=== PATIENT | female | born 2000 | race American Indian/Alaskan Native ===

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

== ENCOUNTER 2021-02-13 15:30 | Emergency (ER) | payer MEDICAID ==
[2021-02-13 16:26] LABS: CORONAVIRUS COVID-19 NAA NEGATIVE (NEGATIVE)
--- NOTE | 2021-02-13 17:02 | EDM.PDOC ---
<Jocelyne Cooper - Last Filed: 02/13/21 18:06> ED HPI GENERAL MEDICAL PROBLEM - General Chief Complaint: General Stated Complaint: BODY HURTING Time Seen by Provider: 02/13/21 16:46 Source of Information: Reports: Patient History Limitations: Reports: No Limitations - History of Present Illness INITIAL COMMENTS - FREE TEXT/NARRATIVE: Patient is a 20 y.o. female who presents to the ED with c/o chills, headaches, and body aches. The patient states she woke up around 4:00 with a mild headache and generalized body aches. The patient took ibuprofen with little relief. She later went to work and developed chills and began feeling weak. She reports feeling feverish but did not take her temperature. She returned home and took a nap. Her symptoms had gradually worsened when she woke up a 13:00 and she took another dose of ibuprofen with no relief. The patient denies vision changes, dizziness, nausea, vomiting, sore throat, cough, shortness of breath or chest pain. She has no abdominal pain, dysuria, hematuria, no changes in bowel habits. Patient denies alcohol, tobacco, or illicit drug use. She denies any sick contacts. Onset: Today Duration: Getting Worse Location: Reports: Generalized Quality: Reports: Ache Improves with: Reports: None Worsens with: Reports: None Context: Reports: Other Associated Symptoms: Reports: Fever/Chills, Headaches, Weakness. 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 ED EXAM, GENERAL - Physical Exam Exam: See Below Exam Limited By: No Limitations General Appearance: Alert, WD/WN, No Apparent Distress Eye Exam: Bilateral Eye: EOMI, Normal Inspection, PERRL Ears: Normal External Exam, Normal Canal, Hearing Grossly Normal, Normal TMs Nose: Normal Inspection, Normal Mucosa, No Blood Throat/Mouth: Normal Inspection, Normal Lips, Normal Teeth, Normal Gums, Normal Oropharynx, Normal Voice, No Airway Compromise Head: Atraumatic, Normocephalic Neck: Normal Inspection, Supple, Non-Tender, Full Range of Motion Respiratory/Chest: No Respiratory Distress, Lungs Clear, Normal Breath Sounds, No Accessory Muscle Use, Chest Non-Tender Cardiovascular: Normal Peripheral Pulses, No Edema, No Gallop, No Murmur, No Rub, Tachycardia Peripheral Pulses: 3+: Radial (L), Radial (R), Posterior Tibial (L), Posterior Tibial (R) GI/Abdominal: Normal Bowel Sounds, Soft, Non-Tender, No Organomegaly, No Distention, No Abnormal Bruit, No Mass (Female) Exam: Deferred Rectal (Female) Exam: Deferred Back Exam: Normal Inspection, Full Range of Motion. No: CVA Tenderness (L), CVA Tenderness (R), Muscle Spasm, Vertebral Tenderness Extremities: Normal Inspection, Normal Range of Motion, Non-Tender, No Pedal Edema, Normal Capillary Refill. No: Joint Swelling Neurological: Alert, Oriented, CN II-XII Intact, Normal Cognition, Normal Gait, Normal Reflexes, No Motor/Sensory Deficits Psychiatric: Anxious, Tearful Skin Exam: Warm, Dry, Intact, Normal Color, No Rash Lymphatic: No Adenopathy Departure - Departure Time of Disposition: 18:04 Disposition: Home, Self-Care 01 Condition: Fair Clinical Impression: Viral infection - Discharge Information *PRESCRIPTION DRUG MONITORING PROGRAM REVIEWED*: Not Applicable *COPY OF PRESCRIPTION DRUG MONITORING REPORT IN PATIENT TINY: Not Applicable Instructions: Viral Illness, Adult Forms: ED Department Discharge Care Plan Goals: Patient was advised of the physical exam, lab, and x-results. -Recommended Ibuprofen or Tylenol to reduce symptoms of body aches or fever. -Drink plenty of fluids, especially water. Eat a plain diet as tolerated. Get plenty of rest. -If the patient's symptoms persist or worsen she needs to follow up in the ED for further evaluation. Sepsis Event Note (ED) - Evaluation Sepsis Screening Result: No Definite Risk <Glenroy Roblero - Last Filed: 02/13/21 18:11> Course - Vital Signs Last Recorded V/S: Last Vital Signs Temp 37.4 C 02/13/21 15:47 Pulse 117 H 02/13/21 15:47 Resp 18 02/13/21 15:47 BP 122/71 02/13/21 15:47 Pulse Ox 99 02/13/21 15:47 - Orders/Labs/Meds Orders: Active Orders 24 hr Category Date Time Status CULTURE STREP A CONFIRMATION [] Stat Lab 02/13/21 15:40 Results CULTURE URINE [] Stat Lab 02/13/21 16:52 Received STREP SCRN A RAPID W CULT CONF [] Stat Lab 02/13/21 15:39 Ordered Labs: Laboratory Tests 02/13/21 02/13/21 02/13/21 Range/Units 15:40 16:45 16:45 WBC 13.9 H (5.0-10.0) 10^3/uL RBC 4.85 (4.2-5.4) 10^6/uL Hgb 14.3 (12.0-16.0) g/dL Hct 40.6 (37.0-47.0) % MCV 83.7 D (80-100) fL MCH 29.5 (27.0-34.0) pg MCHC 35.2 H (33.0-35.0) g/dL Plt Count 325 (150-450) 10^3/uL Neut % (Auto) 83.7 H (42.2-75.2) % Lymph % (Auto) 8.0 L (20.5-50.1) % [place] % (Auto) 7.8 (2-8) % Eos % (Auto) 0.2 L (1.0-3.0) % Baso % (Auto) 0.3 (0.0-1.0) % Sodium 137 (136-145) mmol/L Potassium 3.4 L (3.5-5.1) mmol/L Chloride 102 (98-107) mmol/L Carbon Dioxide 27 (21-32) mmol/L Anion Gap 11.4 (7-13) mEq/L BUN 11 (7-18) mg/dL Creatinine 0.85 (0.55-1.02) mg/dL Est Cr Clr Drug Dosing 91.93 mL/min Estimated GFR (MDRD) > 60 BUN/Creatinine Ratio 12.9 (No establ ref range) Glucose 88 (74-99) mg/dL Calcium 8.1 L (8.5-10.1) mg/dL Total Bilirubin 0.6 (0.2-1.0) mg/dL AST 15 (15-37) U/L ALT 33 (14-59) U/L Alkaline Phosphatase 148 H (46-116) U/L Total Protein 7.9 (6.4-8.2) g/dL Albumin 3.8 (3.4-5.0) g/dL Globulin 4.1 Albumin/Globulin Ratio 0.9 Urine Color (YELLOW) Urine Appearance (CLEAR) Urine pH (5.0-9.0) Ur Specific [place] (1.005-1.030) Urine Protein (NEGATIVE) Urine Glucose (UA) (NEGATIVE) Urine Ketones (NEGATIVE) Urine Occult Blood (NEGATIVE) Urine Nitrite (NEGATIVE) Urine Bilirubin (NEGATIVE) Urine Urobilinogen (0.2-1.0) mg/dL Ur Leukocyte Esterase (NEGATIVE) Urine RBC /HPF Urine WBC (0-5/HPF) /HPF Ur Epithelial Cells (NOT SEEN) /HPF Urine Bacteria (0-FEW/HPF) /HPF Urine HCG, Qual Urine Opiates Screen (NEGATIVE) Ur Oxycodone Screen (NEGATIVE) Urine Methadone Screen (NEGATIVE) Ur Barbiturates Screen (NEGATIVE) U Tricyclic Antidepress (NEGATIVE) Ur Phencyclidine Scrn (NEGATIVE) Ur Amphetamine Screen (NEGATIVE) U Methamphetamines Scrn (NEGATIVE) Urine MDMA Screen (NEGATIVE) U Benzodiazepines Scrn (NEGATIVE) Urine Cocaine Screen (NEGATIVE) U Marijuana (THC) Screen (NEGATIVE) Influenza Type A RNA Negative (NEGATIVE) Influenza Type B RNA Negative (NEGATIVE) SARS-CoV-2 RNA (HEMA) Negative (NEGATIVE) 02/13/21 02/13/21 02/13/21 Range/Units 16:52 16:52 16:52 WBC (5.0-10.0) 10^3/uL RBC (4.2-5.4) 10^6/uL Hgb (12.0-16.0) g/dL Hct (37.0-47.0) % MCV (80-100) fL MCH (27.0-34.0) pg MCHC (33.0-35.0) g/dL Plt Count (150-450) 10^3/uL Neut % (Auto) (42.2-75.2) % Lymph % (Auto) (20.5-50.1) % [place] % (Auto) (2-8) % Eos % (Auto) (1.0-3.0) % Baso % (Auto) (0.0-1.0) % Sodium (136-145) mmol/L Potassium (3.5-5.1) mmol/L Chloride (98-107) mmol/L Carbon Dioxide (21-32) mmol/L Anion Gap (7-13) mEq/L BUN (7-18) mg/dL Creatinine (0.55-1.02) mg/dL Est Cr Clr Drug Dosing mL/min Estimated GFR (MDRD) BUN/Creatinine Ratio (No establ ref range) Glucose (74-99) mg/dL Calcium (8.5-10.1) mg/dL Total Bilirubin (0.2-1.0) mg/dL AST (15-37) U/L ALT (14-59) U/L Alkaline Phosphatase (46-116) U/L Total Protein (6.4-8.2) g/dL Albumin (3.4-5.0) g/dL Globulin Albumin/Globulin Ratio Urine Color Yellow (YELLOW) Urine Appearance Clear (CLEAR) Urine pH 6.5 (5.0-9.0) Ur Specific [place] 1.025 (1.005-1.030) Urine Protein Negative (NEGATIVE) Urine Glucose (UA) Negative (NEGATIVE) Urine Ketones Negative (NEGATIVE) Urine Occult Blood Negative (NEGATIVE) Urine Nitrite Negative (NEGATIVE) Urine Bilirubin Negative (NEGATIVE) Urine Urobilinogen 0.2 (0.2-1.0) mg/dL Ur Leukocyte Esterase Trace H (NEGATIVE) Urine RBC Not seen /HPF Urine WBC 0-5 (0-5/HPF) /HPF Ur Epithelial Cells Moderate H (NOT SEEN) /HPF Urine Bacteria Few (0-FEW/HPF) /HPF Urine HCG, Qual Negative Urine Opiates Screen Negative (NEGATIVE) Ur Oxycodone Screen Negative (NEGATIVE) Urine Methadone Screen Negative (NEGATIVE) Ur Barbiturates Screen Negative (NEGATIVE) U Tricyclic Antidepress Negative (NEGATIVE) Ur Phencyclidine Scrn Negative (NEGATIVE) Ur Amphetamine Screen Negative (NEGATIVE) U Methamphetamines Scrn Negative (NEGATIVE) Urine MDMA Screen Negative (NEGATIVE) U Benzodiazepines Scrn Negative (NEGATIVE) Urine Cocaine Screen Negative (NEGATIVE) U Marijuana (THC) Screen Negative (NEGATIVE) Influenza Type A RNA (NEGATIVE) Influenza Type B RNA (NEGATIVE) SARS-CoV-2 RNA (HEMA) (NEGATIVE) - Re-Assessments/Exams Free Text/Narrative Re-Assessment/Exam: 02/13/21 18:11 I have examined the patient. I have discussed findings and treatment plan with the PA student. I agree with the assessment and plan in the following students note. Sepsis Event Note (ED) - Focused Exam Vital Signs: Vital Signs Temp Pulse Resp BP Pulse Ox 02/13/21 15:47 37.4 C 117 H 18 122/71 99 - My Orders Last 24 Hours: My Active Orders 02/13/21 15:39 STREP SCRN A RAPID W CULT CONF [RM] Stat 02/13/21 15:40 CULTURE STREP A CONFIRMATION [RM] Stat 02/13/21 16:52 CULTURE URINE [RM] Stat - Assessment/Plan Last 24 Hours: My Active Orders 02/13/21 15:39 STREP SCRN A RAPID W CULT CONF [RM] Stat 02/13/21 15:40 CULTURE STREP A CONFIRMATION [RM] Stat 02/13/21 16:52 CULTURE URINE [RM] Stat
[2021-02-13 17:10] LABS: ANION GAP 11.4 mEq/L (7-13); CHLORIDE,CL 102 mmol/L (98-107); SODIUM,NA 137 mmol/L (136-145)
--- NOTE | 2021-02-13 18:01 | CR ---
PROCEDURE INFORMATION: Exam: XR Chest Exam date and time: 02/13/2021 5:25 PM Age: 20 years old Clinical indication: Other: Elevated wbc; Additional info: Body aches; Elevated wbc TECHNIQUE: Imaging protocol: XR of the chest Views: 2 views. COMPARISON: No relevant prior studies available. FINDINGS: Lungs: Unremarkable. No consolidation. Pleural spaces: Unremarkable. No pleural effusion. No pneumothorax. Heart/Mediastinum: Unremarkable. No cardiomegaly. Bones/joints: Unremarkable. IMPRESSION: No acute findings.
== END 2021-02-13 18:13 | disposition home or self-care (01) ==
LOC: DL.ED 15:30
DX: B34.9 Viral infection, unspecified (principal); Z20.822 Contact with and (suspected) exposure to COVID-19
CPT/HCPCS: 0240U; 36415; 71046; 80053; 80305; 81001; 81025; 85025; 87081; 87086; 87430; 99283

== ENCOUNTER 2021-10-13 09:51 | Emergency (ER) | payer MEDICAID ==
[2021-10-13] MEDS ORDERED: Lidocaine 1% 30 ML SDV INJECT ONE (10:42)
[2021-10-13] MEDS ORDERED: Bacitracin Oint 1 GM U/D Packet TOP ONE (11:03)
[2021-10-13] MEDS ORDERED: Bacitracin Oint 1 GM U/D Packet ONE (11:04)
--- NOTE | 2021-10-13 11:06 | EDM.PDOC ---
ED HPI GENERAL MEDICAL PROBLEM - General Chief Complaint: Skin Complaint Stated Complaint: BUMP ON STOMACH Time Seen by Provider: 10/13/21 10:20 Source of Information: Reports: Patient History Limitations: Reports: Other - History of Present Illness INITIAL COMMENTS - FREE TEXT/NARRATIVE: This 20 yo female patient reports to the ED with redness and pain to her right lower abdomen. The patient reports she has noticed increased symptoms over the past 48 hours. The patient reports she has not been seen for these symptoms. Onset: Gradual Duration: Day(s):, Constant Location: Reports: Abdomen Quality: Reports: Ache, Burning Severity: Moderate Improves with: Reports: None Worsens with: Reports: None Context: Reports: Other Associated Symptoms: Reports: No Other Symptoms Right Lower Abdomen Pain Score (Numeric/FACES): 5 - Related Data Allergies Allergy/AdvReac Type Severity Reaction Status Date / Time No Known Allergies Allergy Verified 10/13/21 10:06 Home Meds: Home Meds . 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 ED EXAM, SKIN/RASH Exam: See Below Exam Limited By: No Limitations General Appearance: Alert, WD/WN, Mild Distress Eye Exam: Bilateral Eye: EOMI, Normal Inspection, PERRL Ears: Normal External Exam, Normal Canal, Hearing Grossly Normal, Normal TMs Nose: Normal Inspection, Normal Mucosa, No Blood Throat/Mouth: Normal Inspection, Normal Lips, Normal Teeth, Normal Gums, Normal Oropharynx, Normal Voice, No Airway Compromise Head: Atraumatic, Normocephalic Neck: Normal Inspection, Supple, Non-Tender, Full Range of Motion Respiratory/Chest: No Respiratory Distress, Lungs Clear, Normal Breath Sounds, No Accessory Muscle Use, Chest Non-Tender Cardiovascular: Normal Peripheral Pulses, Regular Rate, Rhythm, No Edema, No Gallop, No JVD, No Murmur, No Rub GI/Abdominal: Normal Bowel Sounds, Soft, Non-Tender, No Organomegaly, No Distention, No Abnormal Bruit, No Mass (Female) Exam: Deferred Rectal (Female) Exam: Deferred Back Exam: Normal Inspection, Full Range of Motion, NT Extremities: Normal Inspection, Normal Range of Motion, Non-Tender, No Pedal Edema, Normal Capillary Refill Neurological: Alert, Oriented, CN II-XII Intact, Normal Cognition, Normal Gait, Normal Reflexes, No Motor/Sensory Deficits Psychiatric: Normal Affect, Normal Mood Skin: Warm, Dry, Erythema Location, Skin: Abdomen Characteristics: Erythematous Associated features: Warmth, Tenderness, Swelling, Induration ED SKIN PROCEDURES - I&D Site: Right lower abdomen Skin Prep: Providone-Iodine (Betadine), Isopropyl Alcohol (Alcohol) Local Anesthesia: Lidocaine: 1% Plain Local Anesthetic Volume: 4cc Area Incised With: 15 Blade Drainage: Purulent, Bloody, Moderate Amount Probed to Break Up Loculations: Yes Packed With: None Sterile Dressing: Adhesive Dressing Complications: No Course - Vital Signs Last Recorded V/S: Last Vital Signs Temp 98.1 F 10/13/21 10:01 Pulse 96 10/13/21 10:01 Resp 18 10/13/21 10:01 BP 109/65 10/13/21 10:01 Pulse Ox 98 10/13/21 10:01 - Orders/Labs/Meds Orders: Active Orders 24 hr Category Date Time Status CULTURE WOUND [RM] Stat Lab 10/13/21 10:58 Ordered Meds: Medications Discontinued Medications Generic Name Dose Route Start Last Admin Trade Name Pascale PRN Reason Stop Dose Admin Bacitracin 1 dose 10/13/21 11:03 10/13/21 11:08 Bacitracin Oint 1 Gm U/D Packet TOP 10/13/21 11:04 1 dose ONETIME ONE Administration Bacitracin Confirm 10/13/21 11:04 Bacitracin Oint 1 Gm U/D Packet Administered 10/13/21 11:05 Dose 1 dose .ROUTE .STK-MED ONE Lidocaine HCl 30 ml 10/13/21 10:42 10/13/21 10:46 Lidocaine 1% 30 Ml Sdv INJECT 10/13/21 10:43 30 ml ONETIME ONE Administration Departure - Departure Time of Disposition: 11:05 Disposition: Home, Self-Care 01 Condition: Fair Clinical Impression: Abscess, abdomen - Discharge Information *PRESCRIPTION DRUG MONITORING PROGRAM REVIEWED*: Not Applicable Instructions: Skin Abscess, [id number] Forms: ED Department Discharge Care Plan Goals: The patient was advised of the examination results during the visit. The patient's abscess was incised and drained during the visit. The patient was discharged with a script for Keflex (500 mg) #20 to take 1 by mouth 2 times per day for 10 days. If the patient has any additional symptoms or concerns, the patient should either return to the emergency department or visit her primary care facility. Sepsis Event Note (ED) - Evaluation Sepsis Screening Result: No Definite Risk - Focused Exam Vital Signs: Vital Signs Temp Pulse Resp BP Pulse Ox 10/13/21 10:01 98.1 F 96 18 109/65 98 - My Orders Last 24 Hours: My Active Orders 10/13/21 10:58 CULTURE WOUND [RM] Stat - Assessment/Plan Last 24 Hours: My Active Orders 10/13/21 10:58 CULTURE WOUND [RM] Stat
== END 2021-10-13 11:22 | disposition home or self-care (01) ==
LOC: DL.ED 09:51
DX: L02.211 Cutaneous abscess of abdominal wall (principal)
CPT/HCPCS: 10060; 87070; 87077; 87186; 99284-25

== ENCOUNTER 2021-12-04 20:55 | Inpatient (IN) | payer MEDICAID ==
[2021-12-04] MEDS ORDERED: Methylergonovine 0.2 MG/1 ML Amp IM PRN (21:33)
[2021-12-04] MEDS ORDERED: Carboprost Tromethamine 250 MCG/1 ML Amp IM PRN (21:33)
[2021-12-04] MEDS ORDERED: Lactated Ringers 1,000 ML IV ONE (21:33)
[2021-12-04] MEDS ORDERED: Misoprostol 400 MCG (4 X 100 MCG TAB) RECTAL PRN (21:33)
[2021-12-04] MEDS ORDERED: Acetaminophen 325 MG Tab PO PRN (21:33)
[2021-12-04] MEDS ORDERED: Ondansetron 4 MG/2 ML SDV IVPUSH PRN (21:33)
[2021-12-04] MEDS ORDERED: fentaNYL 100 MCG/2 ML SDV IVPUSH ONE (21:33)
[2021-12-04] MEDS ORDERED: Lidocaine 1% 30 ML SDV INJECT PRN (21:33)
[2021-12-04] MEDS ORDERED: Tranexamic Acid 1,000 MG in Sodium Chloride 0.9% 100 ML IV PRN (21:33)
[2021-12-04] MEDS ORDERED: Oxytocin/Normal Saline 30 UNIT/500 ML BAG IV SCH (21:45)
[2021-12-04] MEDS ORDERED: Lactated Ringers 1,000 ML IV SCH (21:45)
[2021-12-04] MEDS ORDERED: Simethicone 80 MG Tab.Chew PO PRN (23:34)
[2021-12-04] MEDS ORDERED: Oxytocin 10 Units/1 ML SDV IM PRN (23:34)
[2021-12-04] MEDS ORDERED: Zolpidem 5 MG Tab PO PRN (23:34)
[2021-12-04] MEDS ORDERED: Benzocaine/Menthol 20%-0.5% Spray 78 GM Cannister TOP PRN (23:34)
[2021-12-05] MEDS: Ibuprofen 800 MG Tab PO PRN ×3 (01:55→18:15)
[2021-12-05] MEDS: Prenatal Multivitamin with Calcium/Folic Acid/Iron Tab PO SCH (08:55)
[2021-12-05] MEDS: Ferrous Sulfate 325 MG Tab PO SCH ×2 (08:55→18:14)
[2021-12-05] MEDS: Docusate Sodium 100 MG Cap PO PRN ×2 (08:55→21:14)
[2021-12-06] MEDS: Ferrous Sulfate 325 MG Tab PO SCH (09:48)
[2021-12-06] MEDS: Docusate Sodium 100 MG Cap PO PRN (09:48)
[2021-12-06] MEDS: Prenatal Multivitamin with Calcium/Folic Acid/Iron Tab PO SCH (09:48)
[2021-12-06] MEDS: Ibuprofen 800 MG Tab PO PRN (09:48)
== END 2021-12-06 10:35 | disposition home or self-care (01) | DRG 807 ==
LOC: DL.OBCHECK 20:55 → DL.OB 21:33 → OBSVTOIN 23:11
PROVIDERS: ADMIT Family Medicine; ATTEND Family Medicine
PROC: 10E0XZZ Delivery of Products of Conception, External Approach (ICD-10-PCS; principal; 2021-12-05)
PROC: 0KQM0ZZ Repair Perineum Muscle, Open Approach (ICD-10-PCS; 2021-12-05)
PROC: 10907ZC Drainage of Amniotic Fluid, Therapeutic from Products of Conception, Via Natural or Artificial Opening (ICD-10-PCS; 2021-12-05)
DX: O99.02 Anemia complicating childbirth (principal); Z37.0 Single live birth; O77.0 Labor and delivery complicated by meconium in amniotic fluid; D64.9 Anemia, unspecified; O70.1 Second degree perineal laceration during delivery; Z20.822 Contact with and (suspected) exposure to COVID-19; Z3A.39 39 weeks gestation of pregnancy; Z28.82 Immunization not carried out because of caregiver refusal
CPT/HCPCS: 36415; 59409; 85027; A9270-GY; J2590; J3010; J7120; U0002

== ENCOUNTER 2023-11-24 00:05 | Inpatient (IN) | payer MEDICAID ==
[~2023-11-24 00:05] MED LIST: Carboprost Tromethamine 250 MCG/1 ML Amp IM PRN; Methylergonovine 0.2 MG/1 ML Amp IM PRN; Misoprostol 400 MCG (4 X 100 MCG TAB) RECTAL PRN; Sodium Chloride 0.9% 10 ML Syringe FLUSH PRN; Tranexamic Acid 1,000 MG in Sodium Chloride 0.9% 100 ML IV PRN
[2023-11-24 00:34] LABS: HEMATOCRIT 35.5 % (37.0-47.0); MEAN CORPUSCULAR HEMOGLOBIN 29.1 pg (27.0-34.0); MEAN CORPUSCULAR HGB CONC 33.8 g/dL (33.0-35.0); MEAN CORPUSCULAR VOLUME 86.2 fL (80-100); RED BLOOD CELL COUNT 4.12 10^6/uL (4.2-5.4); WHITE BLOOD CELL COUNT,WBC 9.7 10^3/uL (5.0-10.0)
[2023-11-24] MEDS: Misoprostol 50 MCG (1/2 of 100 MCG) Tab VAG SCH (00:50)
[2023-11-24] MEDS: Misoprostol 25 MCG (1/4 of 100 MCG) Tab VAG PRN (04:50)
[2023-11-24] MEDS: Lactated Ringers 1,000 ML IV SCH (08:59)
[2023-11-24] MEDS: Oxytocin/Normal Saline 30 UNIT/500 ML BAG IV SCH (08:59)
[2023-11-24] MEDS: fentaNYL 100 MCG/2 ML SDV IVPUSH PRN (14:33)
[2023-11-24] MEDS: Ondansetron 4 MG/2 ML SDV IVPUSH PRN (15:00)
[2023-11-24] MEDS ORDERED: Witch Hazel Medicated Pads 100/Jar TOP PRN (17:51)
[2023-11-24] MEDS ORDERED: Oxytocin 10 Units/1 ML SDV IM PRN (17:51)
[2023-11-24] MEDS ORDERED: Acetaminophen 325 MG Tab PO PRN (17:51)
[2023-11-24] MEDS ORDERED: Simethicone 80 MG Tab.Chew PO PRN (17:51)
[2023-11-24] MEDS ORDERED: hydrOXYzine HCl 25 MG Tab PO PRN (17:54)
[2023-11-24] MEDS: Lidocaine 1% 30 ML SDV INJECT ONE (19:06)
[2023-11-24] MEDS: Lactated Ringers 1,000 ML IV ONE (19:06)
[2023-11-24] MEDS: Benzocaine/Menthol 20%-0.5% Spray 78 GM Cannister TOP PRN (20:08)
[2023-11-24] MEDS: Ibuprofen 800 MG Tab PO PRN (20:13)
[2023-11-24] MEDS: Docusate Sodium 100 MG Cap PO PRN (20:13)
[2023-11-25] MEDS: Prenatal Multivitamin with Calcium/Folic Acid/Iron Tab PO SCH (08:21)
[2023-11-25] MEDS: Acetaminophen 325 MG Tab PO PRN (21:48)
== END 2023-11-26 12:20 | disposition home or self-care (01) | DRG 807 ==
LOC: DL.OB 00:05 → OBSVTOIN 17:30 → DL.OB 17:30
PROVIDERS: ADMIT Family Medicine; ATTEND Family Medicine
PROC: 10E0XZZ Delivery of Products of Conception, External Approach (ICD-10-PCS; principal; 2023-11-24)
PROC: 10907ZC Drainage of Amniotic Fluid, Therapeutic from Products of Conception, Via Natural or Artificial Opening (ICD-10-PCS; 2023-11-24)
PROC: 3E0P7VZ Introduction of Hormone into Female Reproductive, Via Natural or Artificial Opening (ICD-10-PCS; 2023-11-24)
DX: O99.02 Anemia complicating childbirth (principal); O69.81X0 Labor and delivery complicated by cord around neck, without compression, not applicable or unspecified; Z37.0 Single live birth; Z3A.39 39 weeks gestation of pregnancy; O70.0 First degree perineal laceration during delivery
CPT/HCPCS: 36415; 59409; 85027; A9270-GY; J2405; J2590; J3010; J7120

== ENCOUNTER 2025-05-30 00:14 | Inpatient (IN) | payer MEDICAID ==
[2025-05-30] MEDS ORDERED: Sodium Chloride 0.9% 10 ML Syringe FLUSH PRN (07:47)
[2025-05-30] MEDS ORDERED: Carboprost Tromethamine 250 MCG/1 ML Amp IM PRN (07:47)
[2025-05-30] MEDS ORDERED: Ondansetron 4 MG/2 ML SDV IVPUSH PRN (07:47)
[2025-05-30] MEDS ORDERED: Oxytocin/Lactated Ringers 30 UNIT/500 ML BAG IV SCH (08:00)
[2025-05-30 17:35] LABS: PLATELET COUNT,PLT 266.0 10^3/uL (150-450); RED BLOOD CELL COUNT 4.55 10^6/uL (4.2-5.4); WHITE BLOOD CELL COUNT,WBC 10.7 10^3/uL (5.0-10.0)
[2025-05-30] MEDS: Penicillin G Potassium 3 MILLUNITS in Sodium Chloride 0.9% 100 ML IV SCH ×2 (17:52→22:13)
[2025-05-30] MEDS: Penicillin G Potassium 5 MILLUNITS in Sodium Chloride 0.9% 100 ML IV ONE ×2 (17:52→18:04)
[2025-05-30] MEDS: Lactated Ringers 1,000 ML IV SCH (18:53)
[2025-05-30] MEDS: Oxytocin/Normal Saline 30 UNIT/500 ML BAG IV SCH (18:54)
[2025-05-30] MEDS: Nalbuphine HCl 10 MG/ 1ML Amp IM PRN (23:53)
[2025-05-31] MEDS ORDERED: Oxytocin 10 Units/1 ML SDV IM PRN (01:40)
[2025-05-31] MEDS: Witch Hazel Medicated Pads 100/Jar TOP PRN (03:36)
[2025-05-31] MEDS: Benzocaine/Menthol 20%-0.5% Spray 78 GM Cannister TOP PRN (03:37)
[2025-05-31] MEDS: Lactated Ringers 1,000 ML IV ONE (08:06)
[2025-05-31] MEDS: Prenatal Multivitamin with Calcium/Folic Acid/Iron Tab PO SCH (08:46)
[2025-06-01 07:05] LABS: PLATELET COUNT,PLT 261.0 10^3/uL (150-450); RED BLOOD CELL COUNT 4.47 10^6/uL (4.2-5.4); WHITE BLOOD CELL COUNT,WBC 11.5 10^3/uL (5.0-10.0)
== END 2025-06-01 12:21 | disposition home or self-care (01) | DRG 807 ==
LOC: DL.OB 01:26 → OBSVTOIN 05-31 01:26
PROVIDERS: ADMIT Family Medicine; ATTEND Family Medicine
PROC: 10E0XZZ Delivery of Products of Conception, External Approach (ICD-10-PCS; principal; 2025-05-31)
PROC: 4A1HXCZ Monitoring of Products of Conception, Cardiac Rate, External Approach (ICD-10-PCS; 2025-05-31)
PROC: 10907ZC Drainage of Amniotic Fluid, Therapeutic from Products of Conception, Via Natural or Artificial Opening (ICD-10-PCS; 2025-05-31)
PROC: 3E033VJ Introduction of Other Hormone into Peripheral Vein, Percutaneous Approach (ICD-10-PCS; 2025-05-31)
DX: O99.824 Streptococcus B carrier state complicating childbirth (principal); Z37.0 Single live birth; Z3A.39 39 weeks gestation of pregnancy; F43.21 Adjustment disorder with depressed mood; O99.344 Other mental disorders complicating childbirth
CPT/HCPCS: 36415; 59409; 85027; A9270-GY; J2300; J2540; J2590; J7120